=== PATIENT | female | born 1965 | race Caucasian/White ===

== ENCOUNTER → 2017-07-21 13:01 | Outpatient (CLI) | payer BC, SELFPAY ==
--- NOTE | 2017-07-21 13:04 | HPBD_ITS ---
STUDY: DUAL ENERGY X-RAY ABSORPTIOMETRY / DXA REASON FOR EXAM: Female, 51 years old. Early menopause. Loss of height. TECHNIQUE: Bone Mineral Density (BMD) measurements of lumbar spine and bilateral hips were obtained. COMPARISON: None. FINDINGS: Lumbar Spine (L1-L4): g/cm2 (0.960) / T-score (-1.8) / Z-score (-1.5) Findings are suggestive of osteopenia with a moderate fracture risk. Left Femur Total: g/cm2 (0.949) / T-score (-0.5) / Z-score (0.0) Left Femoral Neck: g/cm2 (0.833) / T-score (-1.5) / Z-score (-0.7) Right Femur Total: g/cm2 (0.950) / T-score (-0.5) / Z-score (0.0) Right Femoral Neck: g/cm2 (0.845) / T-score (-1.4) / Z-score (-0.6) HPBD/Dexa Bone Density Study (HP) IMPRESSION: The patient is considered osteopenic as outlined below according to [employer] (WHO) criteria with a moderate fracture risk. Reference Information: The T-score is the number of standard deviations above or below the standard which is normal for young adults at their peak bone mineral density. The World Health Organization (WHO) interprets the T-scores as follows: Above -1 Normal bone density Between -1 and -2.5 Osteopenia Equal to / or below -2.5 Osteoporosis As a practical clinical guideline, osteopenia may be graded as follows: Mild -1 through -1.5 Moderate -1.6 through -2.0 Severe -2.1 through -2.4 The Z-score is the number of standard deviations above or below age-matched controls. A Z-score of less than -1.5 would be considered abnormal. References: 1. NIH Osteoporosis and Related Bone Diseases http://www.osteo.org 2. International Society for Clinical Densitometry http://www.iscd.org 3. National Osteoporosis Foundation http://www.nof.org Electronically Signed: Ron Guzman MD at 14:27 EDT Tel [phone], Service support ,
--- NOTE | 2017-07-21 13:05 | HPBI_ITS ---
MAMMOGRAPHY - BILATERAL SCREENING REASON FOR EXAM: Female, 51 years old. Routine annual screening examination. PERTINENT HISTORY: Mother with breast cancer. Grandmother with breast cancer. Aunts with breast cancer. TECHNIQUE: Digital bilateral breast flaco (3D mammographic acquisition) in the CC and MLO projections. 2-D mediolateral oblique (MLO) and craniocaudad (CC) views of both breasts were obtained. CAD: Full Field Digital Mammography with Computer Added Detection was performed. COMPARISON: Comparison is made with prior study dated August 25, 2012 and April 04, 2011. FINDINGS: Breast Composition: The breasts are heterogeneously dense, which may obscure small masses. There are no dominant masses or suspicious calcifications. No other significant abnormalities are identified. There has been no significant change since the prior study. HPBI/SCREENING MAMM (CAD), BILAT IMPRESSION: Stable bilateral screening mammogram. Yearly follow-up mammogram recommended. (A) ASSESSMENT CATEGORY: BIRADS Category 1: Negative. A letter regarding these results will be sent to the patient by the facility within 30 days. Approximately 10% of breast cancers are not detected by mammography. A normal mammogram should not delay biopsy of a clinically suspicious abnormality. [id number] Electronically Signed: Ron Guzman MD at 14:51 EDT Tel [phone], Service support ,
== END ==
PROVIDERS: Family Provider Family Medicine; PCP Family Medicine; Visit Provider Family Medicine
DX: Z12.31 Encounter for screening mammogram for malignant neoplasm of breast (principal); Z13.820 Encounter for screening for osteoporosis
CPT/HCPCS: 77063; 77067; 77080

== ENCOUNTER → 2017-10-26 11:55 | Outpatient (CLI) | payer BC, SELFPAY ==
--- NOTE | 2017-10-26 11:59 | RAD_ITS ---
STUDY: X-RAY - LEFT HAND REASON FOR EXAM: Female, 51 years old. Trauma TECHNIQUE: 3 view(s) of the hand. COMPARISON: None. FINDINGS: Normal radiocarpal articulation. Normal distal radioulnar joint. Normal visualized carpal bones. Normal carpal articulations Normal carpometacarpal articulation of the thumb. Normal second through fifth carpometacarpal joints. Normal metacarpi. Normal metacarpophalangeal joint of the thumb. Normal interphalangeal joint of the thumb. Normal proximal and distal phalanges of the thumb. Normal metacarpophalangeal joints of the second through fifth fingers. Normal proximal and distal interphalangeal joints of the second through fifth fingers. Normal phalanges of the second through fifth fingers. The soft tissue structures are unremarkable. RAD/Hand Min 3 Views IMPRESSION: Normal x-ray examination of the hand. Electronically Signed: Garrison Laura MD at 22:29 EDT , Service support ,
== END ==
PROVIDERS: Family Provider Family Medicine; PCP Family Medicine; Visit Provider Family Medicine
DX: S69.92XA Unspecified injury of left wrist, hand and finger(s), initial encounter (principal)
CPT/HCPCS: 73130

== ENCOUNTER 2018-03-29 05:49 | Day surgery (SDC) | payer BC, SELFPAY ==
[2018-03-29 06:34] VITALS: BP 122/80; PULSE 53; RESP 14; TEMP 36.3; O2SAT 96; BMI 26.4
--- NOTE | 2018-03-29 07:30 | PCM.HP.STD ---
Problem List (1) Screen for colon cancer Status: Acute History of Present Illness Date of Admission: 03/29/18 The patient is a 52 year old F who presents for screening colonoscopy. Past Medical History Allergies No Known Allergies Allergy (Verified 03/29/18 06:21) Home Medications: Ambulatory Orders Medication Instructions Recorded Albuterol Sulfate [Proair Hfa] 8.5 gm IH Q4H PRN PRN 03/29/18 Bupropion HCl [Wellbutrin Xl] 150 mg PO DAILY 03/29/18 Calcium (Elemental) [[place] 500] 500 mg PO DAILY@0800 03/29/18 Cholecalciferol (Vitamin D3) 2,000 unit PO DAILY 03/29/18 [Vitamin D3] Mometasone/Formoterol [Dulera 100 13 gm IH BID 03/29/18 Mcg/5 Mcg Inhaler] Multivit with Calcium,Iron,Min 1 each PO DAILY 03/29/18 [Multiple Vitamins For Women] Smoking Status: Never smoker - *Family History Maternal History Items: No pertinent history Review of Systems Cardiovascular: Denies: Chest Pain, Chest Pressure, Chest Tightness, Palpitations Respiratory: Denies: Cough, Hemoptysis, Shortness of breath at rest, Shortness of breath upon exertion, Wheezing Gastrointestinal: Denies: Abdominal Pain, Constipation, Diarrhea, Hematemesis, Nausea, Melena, Vomiting VTE Information - Inpt Only VTE Present on Admission: No VTE Mechan Device Prophylaxis: None VTE Pharm Prophylaxis ordered?: No Reason prophylaxis not ordered:: Treatment Not Indicated Patient Problems: Active and Suspected Problems Screen for colon cancer (Acute) - Physical Exam Lungs: Clear to auscultation Cardiovascular: Regular rate, Regular Rhythm, No murmurs Abdomen: Bowel Sounds Present, Soft, Non Tender, Non-Distended Vital Signs Temp Pulse Resp BP Pulse Ox 97.3 F L 53 L 14 122/80 H 96 03/29/18 06:34 03/29/18 06:34 03/29/18 06:34 03/29/18 06:34 03/29/18 06:34 Oxygen Delivery Method Room Air Weight: 163 lb 12.855 oz Body Mass Index (BMI) 26.4 Assessment/Plan All Active Problems Screen for colon cancer (Acute) Plan is to perform a screening colonoscopy.
[2018-03-29 07:32] VITALS: BP 122/80; BP 75/56; PULSE 60; RESP 16; TEMP 36.7; O2SAT 100
--- NOTE | 2018-03-29 07:34 | OP.ENDO_ITS ---
Patient Name: Ban Bedolla Procedure Date: 03/29/2018 6:55 AM Date of : 1965 Age: 52 Procedure: Colonoscopy Indications: Screening for colorectal malignant neoplasm Providers: Carlos Ritter MD Referring MD: Carlos Ritter MD Medicines: See the Anesthesia note for documentation of the administered medications Patient Profile: This is a 52 year old female. Refer to note in patient chart for documentation of history and physical. Last Colonoscopy: more than 10 years ago. Complications: No immediate complications. Procedure: Pre-Anesthesia Assessment: - Prior to the procedure, a History and Physical was performed, and patient medications and allergies were reviewed. The patient's tolerance of previous anesthesia was also reviewed. The risks and benefits of the procedure and the sedation options and risks were discussed with the patient. All questions were answered, and informed consent was obtained. Prior Anticoagulants: The patient has taken no previous anticoagulant or antiplatelet agents. ASA Grade Assessment: II - A patient with mild systemic disease. After reviewing the risks and benefits, the patient was deemed in satisfactory condition to undergo the procedure. After I obtained informed consent, the scope was passed under direct vision. Throughout the procedure, the patient's blood pressure, pulse, and oxygen saturations were monitored continuously. The colonoscope was introduced through the anus and advanced to 5 cm into the ileum. The colonoscopy was performed without difficulty. The patient tolerated the procedure well. The quality of the bowel preparation was good. Scope In: Scope Out: Findings: Scattered small-mouthed diverticula were found in the sigmoid colon, descending colon and ascending colon. The exam was otherwise without abnormality on direct and retroflexion views. Impression: - Diverticulosis in the sigmoid colon, in the descending colon and in the ascending colon. - The examination was otherwise normal on direct and retroflexion views. - No specimens collected. Recommendation: - Discharge patient to home. - Resume previous diet. - Continue present medications. - Repeat colonoscopy in 10 years for screening purposes. - Return to primary care physician at appointment to be scheduled. Procedure Code(s): --- Professional --- 44286, Colonoscopy, flexible; diagnostic, including collection of specimen(s) by brushing or washing, when performed (separate procedure) Diagnosis Code(s): --- Professional --- Z12.11, Encounter for screening for malignant neoplasm of colon K57.30, Diverticulosis of large intestine without perforation or abscess without bleeding CPT copyright 2017 [employer]. All rights reserved. The codes documented in this report are preliminary and upon informatics manager review may be revised to meet current compliance requirements. MD Carlos Milan MD 03/29/2018 7:33:55 AM This report has been signed electronically. Number of Addenda: 0 Note Initiated On: 03/29/2018 6:55 AM
[2018-03-29 07:35] VITALS: BP 122/80; BP 98/58; PULSE 52; RESP 16; O2SAT 100
[2018-03-29 07:40] VITALS: BP 103/56; BP 122/80; PULSE 52; RESP 16; O2SAT 98
[2018-03-29 07:45] VITALS: BP 122/80; BP 92/44; PULSE 52; RESP 16; TEMP 36.3; O2SAT 100
[2018-03-29 07:57] VITALS: BP 122/80
== END 2018-03-29 08:02 | disposition home or self-care (01) ==
LOC: EN 05:51 → AC 05:53
PROVIDERS: Family Provider Family Medicine; PCP Family Medicine; Referring Provider Surgery; Visit Provider Surgery
PROC: 0DJD8ZZ Inspection of Lower Intestinal Tract, Via Natural or Artificial Opening Endoscopic (ICD-10-PCS; CPT 45378; principal; 2018-03-29 06:55)
DX: Z12.11 Encounter for screening for malignant neoplasm of colon (principal); K57.30 Diverticulosis of large intestine without perforation or abscess without bleeding; F32.9 Major depressive disorder, single episode, unspecified; J45.909 Unspecified asthma, uncomplicated; Z79.51 Long term (current) use of inhaled steroids; Z79.899 Other long term (current) drug therapy
CPT/HCPCS: 45378; J7120

== ENCOUNTER 2020-07-19 08:27 | Outpatient (RCR) | payer BC, SELFPAY ==
[2020-07-19] MEDS: COVID-19 VACC, MRNA(PFIZER)/PF 30 MCG/0.3 ML SYRINGE IM (08:08)
[2020-08-09] MEDS: COVID-19 VACC, MRNA(PFIZER)/PF 30 MCG/0.3 ML SYRINGE IM (08:01)
== END 2020-07-19 23:59 ==
LOC: IMMUN 08:27
PROVIDERS: PCP Family Medicine; Visit Provider Family Medicine
DX: Z23 Encounter for immunization (principal)
CPT/HCPCS: 0001A; 0002A; 91300

== ENCOUNTER → 2021-01-03 11:37 | Outpatient (CLI) | payer BC, SELFPAY ==
[2021-01-03 15:11] LABS: Absolute Lymphocyte Count 1.55 X10^3/uL (0.83-4.51); Absolute Neutrophil Count 2.8 X10^3/uL (2.0-7.7); Basophil# 0.04 X10^3/uL; Basophil% 0.8 % (0-1); Eosinophil# 0.08 X10^3/uL; Eosinophils% 1.6 % (0-5); Hematocrit 41.3 % (37-47); Hemoglobin 12.8 g/dL (12.0-15.0); Lymphocyte # 1.55 X10^3/ul (0.83-4.51); Lymphocyte % 31.1 % (19-41); Mean Corpuscular Hgb 28.8 pg (27.0-32.0); Mean Platelet Vol. 11.7 fl (6.2-12.0); NRBC Flagged by Analyzer 0 % (0-5); Neutrophil % 56.1 % (47-70); Platelet Count 280 K/mm3 (150-450); RBC Distribution Width CV 13.3 % (11.6-14.6); RBC Distribution Width SD 45.5 fl (35.1-43.9); Red Blood Count 4.44 M/mm3 (4.2-5.4)
[2021-01-03 15:35] LABS: ALB/GLOB Ratio 1.2 RATIO (0.9-2.4); AST(SGOT) 20 U/L (15-37); Alanine Aminotransfer ALT/SGPT 34 U/L (13-56); Albumin, Serum 3.8 g/dL (3.2-5.0); Alkaline Phosphatase 64 U/L (45-117); Anion Gap 4 (5-15); BUN 10 mg/dL (7-18); BUN/Creat Ratio 12.2 RATIO (10-20); Calcium,Total 8.9 mg/dL (8.5-10.1); Chloride 106 mmol/L (98-107); Creatinine, Serum 0.82 mg/dL (0.55-1.02); EST Glomerular Filtration Rate 78 mL/min (>60); Est Glom Filt Rate - Afr Amer 94 mL/min (>60); Globulin 3.2 g/dL (2.2-4.2); Glucose 94 mg/dL (74-106); Iron 88 ug/dL (50-170); Iron Binding Capacity,Total 286 ug/dL (250-450); PERCENT IRON SATURATION 30.8 % (15.0-55.0); Potassium 3.7 mmol/L (3.5-5.1); Sodium Level 140 mmol/L (136-145)
== END ==
PROVIDERS: PCP Family Medicine; Referring Provider Family Medicine; Visit Provider Family Medicine
DX: G47.62 Sleep related leg cramps (principal)
CPT/HCPCS: 36415; 80053; 83540; 83550; 83735; 85025

== ENCOUNTER → 2021-01-11 14:56 | Outpatient (CLI) | payer BC, SELFPAY ==
--- NOTE | 2021-01-11 15:12 | BI_ITS ---
MAMMOGRAPHY - BILATERAL SCREENING REASON FOR EXAM: Female, 55 years old. Routine annual screening examination. PERTINENT HISTORY: Mother with breast cancer. Grandmother with history of breast cancer. Aunts with history of breast cancer. TECHNIQUE: Digital bilateral breast barrington (3D mammographic acquisition) in the CC and MLO projections. 2-D mediolateral oblique (MLO) and craniocaudad (CC) views of both breasts were obtained. CAD: Full Field Digital Mammography with Computer Added Detection was performed. COMPARISON: Comparison is made with prior study dated 07/21/2017 and 08/25/2012. FINDINGS: Breast Composition: The breasts are heterogeneously dense, which may obscure small masses. There are no dominant masses or suspicious calcifications. No other significant abnormalities are identified. There has been no significant change since the prior study. BI/SCRN MAMM (CAD)W/[place] BILAT IMPRESSION: Stable bilateral screening mammogram. Yearly follow-up mammogram recommended. (A) ASSESSMENT CATEGORY: BIRADS Category 1: Negative. A letter regarding these results will be sent to the patient by the facility within 30 days. Approximately 10% of breast cancers are not detected by mammography. A normal mammogram should not delay biopsy of a clinically suspicious abnormality. [id number] Electronically Signed: Ron Guzman MD at 8:58 EDT , Service support ,
== END ==
PROVIDERS: PCP Family Medicine; Referring Provider Family Medicine; Visit Provider Family Medicine
DX: Z12.31 Encounter for screening mammogram for malignant neoplasm of breast (principal)
CPT/HCPCS: 77063; 77067

== ENCOUNTER → 2022-01-16 | Outpatient (CLI) | payer BC, SELFPAY ==
[2022-01-24 20:27] LABS: HPV APTIMA, High Risk Negative (Negative)
[2022-01-24 20:51] LABS: HPV Reflexed? YES, CHARGE PATIENT
== END | disposition home or self-care (01) ==
PROVIDERS: PCP Family Medicine; Visit Provider Nurse Practitioner Family
DX: Z12.4 Encounter for screening for malignant neoplasm of cervix (principal)
CPT/HCPCS: 87624; 88175; G0145

== ENCOUNTER → 2022-01-20 | Outpatient (CLI) | payer BC, SELFPAY ==
--- NOTE | 2022-01-20 14:00 | BI_ITS ---
MAMMOGRAPHY - BILATERAL SCREENING 3-D TOMOSYNTHESIS REASON FOR EXAM: Female, 56 years old. SCREENING PERTINENT HISTORY: No significant family history. TECHNIQUE: 2-D mammograms and 3-D Tomosynthesis of the breast (s) were performed. CAD was performed. COMPARISON: 01/11/2021 FINDINGS: The breast composition is heterogeneously dense that can obscure small breast masses. Scattered benign calcifications are seen. No dense spiculated masses or suspicious microcalcifications are identified. No architectural distortion is identified. There is no skin thickening or retraction. There has been no significant change since the prior study. BI/SCRN MAMM (CAD)W/[place] BILAT IMPRESSION: No mammographic signs of malignancy. Routine yearly mammograms recommended. ASSESSMENT CATEGORY: BIRADS Category 1: Negative. A letter regarding these results will be sent to the patient by the facility within 30 days. FOLLOW UP RECOMMENDATION: Yearly follow up mammogram recommended. (A) Approximately 10% of breast cancers are not detected by mammography. A normal mammogram should not delay biopsy of a clinically suspicious abnormality. Electronically Signed: Lukas Fuller MD at 15:04 EDT ,
== END | disposition home or self-care (01) ==
LOC: OPBI 13:58
PROVIDERS: PCP Family Medicine; Visit Provider Nurse Practitioner Family
DX: Z12.31 Encounter for screening mammogram for malignant neoplasm of breast (principal)
CPT/HCPCS: 77063; 77067

== ENCOUNTER → 2022-01-22 | Outpatient (CLI) | payer BC, SELFPAY ==
[2022-01-22 12:53] LABS: Anion Gap 6 (5-15); BUN 10 mg/dL (7-18); Chloride 106 mmol/L (98-107); Cholesterol 250 mg/dL (200); Creatinine, Serum 0.83 mg/dL (0.55-1.02); EST Glomerular Filtration Rate 76 mL/min (>60); Est Glom Filt Rate - Afr Amer 92 mL/min (>60); Glucose 91 mg/dL (74-106); High Density Lipoprotein 62 mg/dL; Sodium Level 140 mmol/L (136-145); Triglycerides 139 mg/dL; Very Low Density Lipoprotein 28 mg/dL (5-40)
== END | disposition home or self-care (01) ==
LOC: MTLAB 09:52
PROVIDERS: PCP Family Medicine; Referring Provider Nurse Practitioner Family; Visit Provider Nurse Practitioner Family
DX: Z13.1 Encounter for screening for diabetes mellitus (principal); Z13.220 Encounter for screening for lipoid disorders
CPT/HCPCS: 36415; 80048; 80061

== ENCOUNTER 2022-06-11 12:13 | Emergency (ER) | payer BC, SELFPAY ==
[2022-06-11 12:14] VITALS: BP 150/106; PULSE 74; RESP 16; TEMP 36.6; O2SAT 98; BMI 29.1
[2022-06-11] MEDS: Morphine 4 MG/ML Syringe IV ×2 (12:33→14:09)
[2022-06-11] MEDS: Ondansetron 4 MG/2 ML Vial IV ×2 (12:33→14:32)
[2022-06-11 13:28] LABS: Bacteria 0 SEEN /hpf (None Seen); Mucous, Urine 0 SEEN /hpf (<or=2+)
[2022-06-11 13:39] LABS: Color, Urine Yellow (Yellow); Glucose, Dipstick Normal (Normal); Ketone-Dipstick Negative (Negative); Leukocyte Esterase-Dipstick 500 /ul (Negative); Nitrite-Dipstick Negative (Negative); Occult Blood-Urine 150 /ul (Negative); Protein-Dipstick 15 mg/dl (Negative); Specific Gravity, Urine 1.025 (1.002-1.030); Urine Bilirubin Dipstick Negative (Negative); Urine Clarity Sl. Cloudy (Clear); Urine Urobilinogen Normal (Normal)
[2022-06-11 13:45] LABS: Red Blood Cells-Urine 0-5 SEEN /hpf (0-5); Squamous Epithelial Cells - UA 0-5 SEEN /hpf (5-10); White Blood Cells 0-5 SEEN /hpf (0-5)
--- NOTE | 2022-06-11 14:01 | CT_ITS ---
STUDY: CT ABDOMEN AND PELVIS WITHOUT CONTRAST REASON FOR EXAM: Female, 56 years old. One-hour history of left flank pain. RADIATION DOSAGE (If Supplied By Facility): CTDIvol = ( 11.09 ) mGy, DLP = ( 545.59 ) mGycm TECHNIQUE: Transaxial images were obtained from the dome of the diaphragm to the symphysis pubis without oral contrast, and without intravenous contrast. Sagittal and coronal images were reconstructed. Individualized dose optimization techniques were used for this CT. COMPARISON: None. FINDINGS: The visualized lung bases are unremarkable. The visualized portions of the heart are within normal limits. Normal liver. Normal gallbladder and extrahepatic biliary system. Normal spleen. Normal pancreas. Normal bilateral adrenal glands. Normal right kidney. Mild degree of left hydronephrosis and left hydroureter due to a 3.6 mm calculus at the left ureterovesical junction. Mild degree of left perinephric and periureteric stranding. Normal visualized stomach. Normal small intestine. Normal colon. The appendix is visualized and appears normal. There is scattered atherosclerotic calcification of the abdominal aorta, without a demonstrated aneurysm. Normal inferior vena cava. Normal retroperitoneum. Normal urinary bladder. Normal abdominal wall. Normal osseous structures. CT/Abdomen/Pelvis without Cont IMPRESSION: Mild degree of left hydronephrosis and left hydroureter due to a 3.6 mm calculus at the left ureterovesical junction. Electronically Signed: Ron Guzman MD at 14:39 EST ,
--- NOTE | 2022-06-11 14:03 | EDS_ITS ---
HPI HPI - GI History of Present Illness Chief Complaint: Flank Pain Abdominal Pain/Flank Pain Onset: Today and Hours Context: Sudden Onset Timing: Continuous Quality: Sharp Location: Left Flank Worsened by: Nothing Relieved by: Nothing Nausea/Vomiting/Emesis GI Symptom: Positive for Nausea; Negative for Vomiting Diarrhea/Melena/Hematochezia GI Symptom: Negative for Diarrhea, Melena or Hematochezia Associated Symptoms Associated Symptoms: Positive for Urgency; Negative for Dysuria, Frequency or Hematuria Narrative Narrative: Patient presents with left flank pain that began today. Patient states it came on suddenly approximately 2 hours prior to arrival. Patient states the pain is sharp. Patient states pain is over the left flank area. Patient states nothing makes it better nothing makes it worse. Patient states she is unable to find a position of comfort. Patient denies any prior history of flank pain or kidney stones. Patient admits to some nausea but denies any vomiting. Patient denies any dysuria or hematuria but admits to some urinary urgency. Patient denies any fevers or chills. PFSH PFSH Medical History Asthma Depression Home Medications albuterol sulfate 90 mcg/actuation aerosol inhaler (ProAir HFA) 8.5 g IH Q4H PRN PRN Asthma 03/29/18 [History Last Taken 03/29/18 05:00 8.5 GM] bupropion HCl 150 mg 24 hr tablet, extended release (Wellbutrin XL) 150 mg PO DAILY 03/29/18 [History Last Taken Unknown] calcium carbonate 500 mg calcium (1,250 mg) tablet (Oyster Shell Calcium 500) 500 mg PO DAILY@0800 03/29/18 [History Last Taken Unknown] cholecalciferol (vitamin D3) 50 mcg (2,000 unit) capsule (Vitamin D3) 2,000 unit PO DAILY 03/29/18 [History Last Taken Unknown] mometasone-formoterol HFA 100 mcg-5 mcg/actuation aerosol inhaler (Dulera) 13 g IH BID 03/29/18 [History Last Taken 03/29/18 05:00 13 GM] tfvvlgzbaikx-Dc-bowp-minerals (Multiple Vitamin, Womens tablet) 1 ea PO DAILY 03/29/18 [History Last Taken Unknown] hydrocodone-acetaminophen 5-325mg 5mg-325mg 1 tab PO Q6H PRN PRN Pain 3 days #10 TABLETS 06/11/22 [Rx Last Taken Unknown] Allergy/AdvReac Type Severity Reaction Status Date / Time No Known Allergies Allergy Verified 06/11/22 12:15 Surgical History no surgical history no surgical history Social History Smoking Status: Former smoker ROS ROS ED Constitutional Constitutional ED: Denies chills or fever(s) Eyes Eyes: Denies blurry vision or change in vision ENT ENT ED: Denies rhinorrhea or sore throat Cardiovascular Cardiovascular: Denies chest pain or palpitations Respiratory/Chest Respiratory/Chest: Denies cough or dyspnea Gastrointestinal Gastrointestinal: Reports nausea; Denies vomiting Genitourinary Genitourinary ED: Reports urinary urgency; Denies dysuria or hematuria Musculoskeletal Musculoskeletal: Reports back pain; Denies neck pain Integumentary Denies abscess or rash Neurologic Neurologic: Denies headache(s) or weakness Allergic/Immunologic Allergic/Immunologic ED: Denies mouth swelling or urticaria EXAM Physical Exam Const Vital Signs: 06/11/22 12:14 06/11/22 14:36 Temperature 98 F Temperature Source Temporal Pulse Rate 74 52 L Respiratory Rate 16 Blood Pressure 150/106 H 95/58 L Blood Pressure Mean 120 70 Pulse Ox 98 Oxygen Delivery Method Room Air Positive well nourished and well developed General Appearance ED: well developed HEENT Reports moist mucous membranes Neck supple and no JVD Resp normal respiratory effort and clear to auscultation bilaterally Cardio regular rate, regular rhythm and no murmurs GI normal to inspection, nondistended, normoactive bowel sounds and non-tender Palpation: soft Back/Spine General Back: CVA tenderness left Extremity normal to inspection General Extremety ED: Negative for edema or tenderness General Extremity: Negative for edema Neuro oriented x3, CN's II-XII intact bilaterally and no sensory deficits noted Sensorium / Orientation: alert Motor Exam: strength 5/5 throughout Psych mental status grossly normal Skin no rashes or lesions noted MDM MDM MDM Narrative Medical decision making narrative: Differential diagnosis includes ureteral calculus, renal calculus, pyelonephritis, urinary tract infection, gastroenteritis, enteritis, colitis, ovarian torsion, and ovarian cyst. CBC will be obtained to assess for leukocytosis and anemia. Basic metabolic profile will be obtained to assess for renal function and electrolyte abnormality. Urinalysis will be obtained to assess for urinary tract infection and hematuria. CT scan of the abdomen pelvis will be obtained to assess for ovarian cyst, ureteral calculus, renal calculus, and pyelonephritis. Lab Data Attestation: I reviewed the patient's lab results. Lab results narrative: Urinalysis was reviewed. Leukocyte esterase was 500 with negative nitrites. There is 0-5 white blood cells. There are 0 bacteria noted. CBC was reviewed and was within normal limits. Basic metabolic profile was reviewed and was within normal limits. Labs: Laboratory Results - last 24 hr 06/11/22 06/11/22 06/11/22 13:00 13:00 13:15 WBC 6.8 RBC 4.46 Hgb 13.4 Hct 41.3 MCV 92.6 MCH 30.0 MCHC 32.4 RDW Std Deviation 43.6 RDW Coeff of Arianne 12.7 Plt Count 327 MPV 11.8 Immature Gran % (Auto) 0.300 Neut % (Auto) 59.8 Lymph % (Auto) 27.8 [place] % (Auto) 10.4 H Eos % (Auto) 1.0 Baso % (Auto) 0.7 Absolute Neuts (auto) 4.1 Absolute Lymphs (auto) 1.90 Nucleated RBC % 0 Sodium 137 Potassium 3.5 Chloride 101 Carbon Dioxide 30.0 Anion Gap 6 BUN 12 Creatinine 1.05 H Estim Creat Clear Calc 55.12 Est GFR (MDRD) Af Amer 70 Est GFR (MDRD) Non-Af 58 L BUN/Creatinine Ratio 11.4 Glucose 88 Calcium 9.5 Urine Color Yellow Urine Clarity Sl. Cloudy Urine pH 5.0 Ur Specific [place] 1.025 Urine Protein 15 H Urine Glucose (UA) Normal Urine Ketones Negative Urine Occult Blood 150 H Urine Nitrite Negative Urine Bilirubin Negative Urine Urobilinogen Normal Ur Leukocyte Esterase 500 H Urine RBC 0-5 SEEN Urine WBC 0-5 SEEN Ur Squamous Epith Cells 0-5 SEEN Urine Bacteria 0 SEEN Urine Mucus 0 SEEN Radiography Diagnostic Testing: Clinical Impression(s) from Imaging Studies Abdomen/Pelvis CT 06/11/22 14:01 IMPRESSION: Mild degree of left hydronephrosis and left hydroureter due to a 3.6 mm calculus at the left ureterovesical junction. Electronically Signed: Ron Guzman MD at 14:39 EST , CT scan of the abdomen pelvis was reviewed independently by myself. There is left hydronephrosis and left hydroureter due to a calculus at the left ureterovesicular junction. There is no evidence of bowel obstruction or perforation. There is no free air or free fluid. Radiologist also interpreted the CT scan and agrees. Radiologist measured the stone at 3.6 mm. Treatment and Re-Evaluation Narrative: Patient was given IV fluids, morphine, and Zofran. Patient was also given a dose of Toradol. Patient is feeling better on reevaluation. Patient was advised of her findings. Patient was given a prescription for a short course of [place]. Patient was instructed to drink plenty of fluids. Patient was instructed to follow-up with her primary care physician in 3 to 5 days. Patient was also given referral for urology. Patient understands and is agreeable with the plan. All questions were answered. Discharge Plan Triage Chief Complaint: Flank Pain ED Provider: Jonathan Joya Dx/Rx/DC Orders Clinical Impression: Calculus of distal left ureter, Left flank pain Instructions: ED Kidney Stone w/ Colic Prescriptions: New hydrocodone-acetaminophen [hydrocodone-acetaminophen] 5-325 mg tablet 1 tab PO Q6H PRN PRN (Reason: Pain) 3 Days Qty: 10 0RF No Action calcium carbonate [Oyster Shell Calcium 500] 500 MG tablet 500 mg PO DAILY@0800 albuterol sulfate [ProAir HFA] 8.5 GM HFA aerosol inhaler 8.5 g IH Q4H PRN PRN (Reason: Asthma) [id number]-Lg-pdla-minerals [Multiple Vitamin, Womens] 1 EACH tablet 1 ea PO DAILY bupropion HCl [Wellbutrin XL] 150 MG tablet extended release 24 hr 150 mg PO DAILY cholecalciferol (vitamin D3) [Vitamin D3] 2,000 UNIT capsule 2,000 unit PO DAILY mometasone-formoterol [Dulera] 8.8 GM HFA aerosol inhaler 13 g IH BID Primary Care Provider: Azar Prather Referrals: Sugey Hilario MD [Med Staff - Active Staff] - 3-5 Days Azar Prather MD [Primary Care Provider] - 3-5 Days Disposition Disposition: Home, Self Care
[2022-06-11] MEDS: 0.9% Normal Saline 1,000 ML 1000 ML IV (14:09)
[2022-06-11] MEDS: Ketorolac 30 MG/ML Syringe IV (14:09)
[2022-06-11 14:10] LABS: Absolute Neutrophil Count 4.1 X10^3/uL (2.0-7.7); Basophil# 0.05 X10^3/uL; Basophil% 0.7 % (0-1); Eosinophil# 0.07 X10^3/uL; Hematocrit 41.3 % (37-47); Hemoglobin 13.4 g/dL (12.0-15.0); Lymphocyte % 27.8 % (19-41); Mean Corp Hgb Conc 32.4 g/dL (32-36); Mean Corpuscular Volume 92.6 fL (81-99); Mean Platelet Vol. 11.8 fl (6.2-12.0); Monocyte# 0.71 X10^3/uL; Monocyte% 10.4 % (0-10); NRBC Flagged by Analyzer 0 % (0-5); Neutrophil # 4.09 X10^3/uL (2.7-7.7); Neutrophil % 59.8 % (47-70); Platelet Count 327 K/mm3 (150-450); RBC Distribution Width CV 12.7 % (11.6-14.6); RBC Distribution Width SD 43.6 fl (35.1-43.9); Red Blood Count 4.46 M/mm3 (4.2-5.4); White Blood Count 6.8 K/mm3 (4.4-11.0)
[2022-06-11 14:23] LABS: Anion Gap 6 (5-15); BUN 12 mg/dL (7-18); BUN/Creat Ratio 11.4 RATIO (10-20); Calcium,Total 9.5 mg/dL (8.5-10.1); Chloride 101 mmol/L (98-107); Creatinine, Serum 1.05 mg/dL (0.55-1.02); EST Glomerular Filtration Rate 58 mL/min (>60); Est Glom Filt Rate - Afr Amer 70 mL/min (>60); Estimated Creatinine Clearance 55.12 ml/min; Glucose 88 mg/dL (74-106); Potassium 3.5 mmol/L (3.5-5.1); Sodium Level 137 mmol/L (136-145)
[2022-06-11 14:36] VITALS: BP 95/58; PULSE 52
== END 2022-06-11 15:23 | disposition home or self-care (01) ==
PROVIDERS: Emergency Provider Emergency Medicine; PCP Family Medicine; Visit Provider Emergency Medicine
DX: N20.1 Calculus of ureter (principal); R10.9 Unspecified abdominal pain; Z87.891 Personal history of nicotine dependence
CPT/HCPCS: 74176; 80048; 81001; 85025; 96361; 96374; 96375; 96376; 99283; J7030; A4216; J2405

== ENCOUNTER → 2024-07-18 | Outpatient (CLI) | payer BC, SELFPAY ==
[2024-07-18 12:52] LABS: Anion Gap 10 (5-15); BUN 10 mg/dL (4-19); BUN/Creat Ratio 10.6 RATIO (10-20); Calcium,Total 9.3 mg/dL (7.6-11.0); Carbon Dioxide 25.6 mmol/L (21.0-32.0); Chloride 105 mmol/L (98-108); Creatinine, Serum 0.94 mg/dL (0.70-1.20); EST Glomerular Filtration Rate 72 (>60); Glucose 92 mg/dL (70-99); Potassium 3.5 mmol/L (3.3-5.1); Sodium Level 140 mmol/L (133-145)
[2024-07-18 18:34] LABS: Cholesterol 231 mg/dL (<=200); High Density Lipoprotein 59 mg/dL; Low Density Lipoprotein Calc. 141 mg/dL; Triglycerides 155 mg/dL; Very Low Density Lipoprotein 31 mg/dL (5-40); cholesterol:hdl ratio screen 3.91
== END | disposition home or self-care (01) ==
LOC: MFPLAB 08:42
PROVIDERS: Nurse Practitioner Family; PCP Family Medicine; Referring Provider Family Medicine; Visit Provider Family Medicine
DX: Z13.1 Encounter for screening for diabetes mellitus (principal); Z13.220 Encounter for screening for lipoid disorders
CPT/HCPCS: 36415; 80048; 80061

== ENCOUNTER → 2024-11-25 | Outpatient (CLI) | payer BC, SELFPAY ==
[2024-11-25 10:51] LABS: Cholesterol 242 mg/dL (<=200); Low Density Lipoprotein Calc. 157 mg/dL; Triglycerides 153 mg/dL; Very Low Density Lipoprotein 31 mg/dL (5-40); cholesterol:hdl ratio screen 4.42
== END | disposition home or self-care (01) ==
LOC: MFPLAB 08:26
PROVIDERS: PCP Family Medicine; Referring Provider Family Medicine; Visit Provider Family Medicine
DX: E78.5 Hyperlipidemia, unspecified (principal)
CPT/HCPCS: 36415; 80061